=== PATIENT | male | born 1950 | race Caucasian/White ===

== ENCOUNTER 2016-10-15 23:09 | Emergency (ER) | payer MEDICARE, BC ==
[2016-10-16 00:19] VITALS: BP 113/69
[2016-10-16] MEDS ORDERED: Doxycycline 100 MG Cap PO ONE (00:42)
--- NOTE | 2016-10-16 00:49 | EDM.PDOC ---
ED HPI GENERAL MEDICAL PROBLEM - General Chief Complaint: Bite:Animal, Insect Stated Complaint: TICK BITE Time Seen by Provider: 10/16/16 00:33 Source of Information: Reports: Patient History Limitations: Reports: No Limitations - History of Present Illness INITIAL COMMENTS - FREE TEXT/NARRATIVE: This patient noticed he deer tick in the area near his umbilicus believe it was yesterday in the tick was pulled off by family member. Later today he notices a lot of redness in the area that was not there earlier today. Obviously it looks infected. He denies any fever. There's no history of Lyme disease. - Related Data Allergies Allergy/AdvReac Type Severity Reaction Status Date / Time Penicillins Allergy Hives Verified 10/16/16 00:25 Tetanus Vaccines and Toxoid Allergy Cannot Verified 10/16/16 00:25 Remember Past Medical History HEENT History: Reports: Impaired Vision Cardiovascular History: Reports: Hypertension Respiratory History: Reports: TB, Other (See Below) Other Respiratory History: collapsed lung Neurological History: Reports: CVA Endocrine/Metabolic History: Reports: Diabetes, Type II - Infectious Disease History Infectious Disease History: Reports: Measles, Mumps - Past Surgical History GI Surgical History: Reports: Hernia Repair/Other Musculoskeletal Surgical History: Reports: Shoulder Surgery Social & Family History - Tobacco Use Smoking Status *Q: Never Smoker - Caffeine Use Caffeine Use: Reports: Coffee - Recreational Drug Use Recreational Drug Use: No ED ROS GENERAL - Review of Systems Review Of Systems: ROS reveals no pertinent complaints other than HPI. ED EXAM, ANIMAL BITE - Physical Exam Exam: See Below Exam Limited By: No Limitations General Appearance: Alert, WD/WN Skin Exam: Other (Just inferior to the umbilicus there is a small spot of blood were a tick was extracted. There does not appear to be any tick left in the area. There is an area of erythema approximately 15 cm in diameter centered around umbilicus. The margins were delineated with a ballpoint can. It's uniformly red doesn't appear to be anything like and erythema margin.) Course - Vital Signs Last Recorded V/S: Last Vital Signs Temp 36.9 C 10/16/16 00:18 Pulse 78 10/16/16 00:18 Resp 16 10/16/16 00:18 BP 113/69 10/16/16 00:18 Pulse Ox 91 L 10/16/16 00:18 - Orders/Labs/Meds Orders: Active Orders 24 hr Category Date Time Status Doxycycline [Vibramycin] Med 10/16/16 00:42 Once 100 mg PO ONETIME ONE Medication Orders Doxycycline Hyclate (Vibramycin) 100 mg PO ONETIME ONE Stop: 10/16/16 00:43 Meds: Medications Generic Name Dose Route Start Last Admin Trade Name Tiesha PRN Reason Stop Dose Admin Doxycycline Hyclate 100 mg 10/16/16 00:42 Vibramycin PO 10/16/16 00:43 ONETIME ONE - Re-Assessments/Exams Free Text/Narrative Re-Assessment/Exam: 10/16/16 00:45 He received doxycycline 100 mg orally Departure - Departure Time of Disposition: 00:45 Disposition: Home, Self-Care 01 Condition: fair Clinical Impression: Tick bite of abdomen, Cellulitis - Discharge Information Forms: ED Department Discharge Additional Instructions: Take doxycycline 100 mg twice daily for 14 days. This is the treatment for Lyme 's disease and should cover regular skin infections also. Keep an eye on the redness and if it appears to be spreading significantly past the sepulveda that were placed in your abdomen be sure to seek care right away. If you appear to be obviously responding to antibiotics then go ahead and finish the full 14 days of the antibiotics just in case this happens to be caused by Lyme disease. If you are improving rapidly then you don't necessarily need followup however if there any questions about it be sure to followup with your DrLeslie early next week. - My Orders Last 24 Hours: My Active Orders 10/16/16 00:42 Doxycycline [Vibramycin] 100 mg PO ONETIME ONE - Assessment/Plan Last 24 Hours: My Active Orders 10/16/16 00:42 Doxycycline [Vibramycin] 100 mg PO ONETIME ONE
== END 2016-10-16 01:15 | disposition home or self-care (01) ==
LOC: JP.ED 23:09
DX: S30.861A Insect bite (nonvenomous) of abdominal wall, initial encounter (principal); L03.311 Cellulitis of abdominal wall; Z88.0 Allergy status to penicillin; Z88.8 Allergy status to other drugs, medicaments and biological substances; Z98.890 Other specified postprocedural states; W57.XXXA Bitten or stung by nonvenomous insect and other nonvenomous arthropods, initial encounter
CPT/HCPCS: 99283; A9270